=== PATIENT | female | born 1935 | race Hispanic/Latino ===

== ENCOUNTER 2017-10-03 10:57 | Inpatient (IN) | payer MEDICARE ==
[2017-10-03 10:58] VITALS: BMI 24.9
[2017-10-03 11:51] LABS: BASO # 0.1 K/uL (0.0-0.2); BASO % 1.1 % (0.0-2.0); EOS # 0.2 K/uL (0.0-0.7); EOS % 3.9 % (0.0-4.0); HEMATOCRIT 42.6 % (34.0-47.0); LYMPH # 1.2 K/uL (1.0-4.3); LYMPH % 20.6 % (20.0-40.0); MEAN CELL VOLUME 92.9 fl (81.0-99.0); MEAN CORPUSCULAR HEMOGLOBIN 30.1 pg (27.0-31.0); MEAN CORPUSCULAR HGB CONC 32.4 g/dL (33.0-37.0); MEAN PLATELET VOLUME 8.1 fl (7.2-11.7); MONO # 0.5 K/uL (0.0-0.8); NEUT # 3.7 K/uL (1.8-7.0); NEUT % 65.4 % (50.0-75.0); NRBC % 0.1 % (0.0-0.0); RED CELL DISTRIBUTION WIDTH 12.9 % (11.5-14.5); WHITE BLOOD COUNT 5.6 K/uL (4.8-10.8)
--- NOTE | 2017-10-03 11:52 | ED PDOC ---
HPI: Headache Time Seen by Provider: 10/03/17 11:00 Chief Complaint (Nursing): Headache Chief Complaint (Provider): Evaluation History Per: Patient History/Exam Limitations: no limitations Onset/Duration Of Symptoms: Days (x2 months) Current Symptoms Are (Timing): Still Present Additional Complaint(s): Kathie Anand is an 82 year old female with a past medical history of renal cancer and brain cancer, who presents to the ED for evaluation s/p craniotomy on 07/21/17. Patient states she had a lytic lesion on her left parietal skull and underwent a craniotomy performed by Dr. Martinez. States she now presents to the ED for a revision. Denies headache, dizziness, vision changes, and vomiting. Patient denies any complaints at this time. PMD: Kendall Hurt MD Past Medical History Reviewed: Historical Data, Nursing Documentation, Vital Signs Vital Signs: Last Vital Signs Temp 97.3 F L 10/03/17 11:03 Pulse 91 H 10/03/17 11:03 Resp 16 10/03/17 11:03 BP 128/64 10/03/17 11:03 Pulse Ox 95 10/03/17 11:03 - Medical History PMH: CAD, COPD, Hepatitis (B), HTN, Hypercholesterolemia, Seizures (LAST SEIZURE JUN 2015), TIA Denies: Depression Other PMH: Renal cancer, Brain cancer - Surgical History Surgical History: Coronary Stent ("many years ago"), Hernia Repair Denies: Pacemaker Other surgeries: Craniotomy 07/21/17 - Family History Family History: States: Unknown Family Hx - Social History Current smoker - smoking cessation education provided: No Ex-Smoker (has not smoked in the last 12 months): Yes (20 years) Alcohol: None Drugs: Denies - Home Medications Home Medications: Ambulatory Orders Medication Instructions Recorded Amlodipine Besylate [Norvasc] 5 mg PO DAILY 12/10/15 Atorvastatin [Lipitor] 20 mg PO HS 12/10/15 Lamotrigine [Lamictal] 100 mg PO BID 12/10/15 Losartan [Cozaar] 50 mg PO DAILY 12/10/15 Omeprazole 40 mg PO DAILY 12/10/15 Polyethylene Glycol 3350 [Miralax] 17 gm PO BID #14 packet 09/04/16 - Allergies Allergies/Adverse Reactions: Allergies Allergy/AdvReac Type Severity Reaction Status Date / Time Penicillins Allergy RASH Verified 10/03/17 11:17 tetanus and diphtheria Allergy RASH/DIZZY Verified 10/03/17 11:17 toxoids [tetanus & diphtheria toxoids] Review of Systems ROS Statement: Except As Marked, All Systems Reviewed And Found Negative Eyes: Negative for: Vision Change Gastrointestinal: Negative for: Vomiting Neurological: Negative for: Headache, Dizziness Physical Exam - Reviewed Nursing Documentation Reviewed: Yes Vital Signs Reviewed: Yes - Physical Exam Appears: Positive for: Well, Non-toxic, No Acute Distress Head Exam: Positive for: ATRAUMATIC, NORMAL INSPECTION, NORMOCEPHALIC Skin: Positive for: Normal Color, Warm, Dry. Negative for: Rash Cardiovascular/Chest: Positive for: Regular Rate, Rhythm. Negative for: Murmur Respiratory: Positive for: Normal Breath Sounds. Negative for: Respiratory Distress Gastrointestinal/Abdominal: Positive for: Normal Exam, Bowel Sounds, Soft. Negative for: Tenderness Back: Positive for: Normal Inspection. Negative for: L CVA Tenderness, R CVA Tenderness, Vertebral Tenderness Extremity: Positive for: Normal ROM. Negative for: Pedal Edema, Deformity Neurologic/Psych: Positive for: Alert, Oriented (x3). Negative for: Motor/ Sensory Deficits - Laboratory Results Result Diagrams: 10/04/17 05:45 10/04/17 05:45 - ECG O2 Sat by Pulse Oximetry: 95 (RA) Pulse Ox Interpretation: Normal Medical Decision Making Medical Decision Making: Time: 11:28 Initial Impression: history of brain cancer R/o metastatic lesion Plan: --Type and screen --CT head w/o contrast --EKG --CMP --Partial thromboplastin time --Prothrombin time --Portable Chest X-Ray --Urine C&S --Urinalysis --Dr. Martinez is aware of patient and requests she be admitted to the Hospitalist for further workup. --Reevaluation Time: 12:45 CT Head Findings: HEMORRHAGE: No intracranial hemorrhage. BRAIN: Prior left parietal craniectomy and cranioplasty are identified. No acute intracranial findings are identified including cytotoxic edema. Mild diffuse cerebral atrophy and chronic microangiopathy are identified which appear age- appropriate. There is no suspicious extra-axial fluid collection appreciated. Tiny granuloma is seen in the posterior left frontal vertex gyrus. VENTRICLES: Unremarkable. No hydrocephalus. PARANASAL SINUSES: Unremarkable as visualized. No significant inflammatory changes. MASTOID AIR CELLS: Unremarkable as visualized. No inflammatory changes. OTHER FINDINGS: None. IMPRESSION: Prior left parietal craniectomy and cranioplasty me without suspicious brain parenchymal findings above or below the tentorium or throughout the brainstem. In fact, no acute intracranial findings are appreciable. Mild age related neuro degenerative changes appear age-appropriate. Follow-up CT or MRI are available including with contrast as clinically warranted. --Contacted Hospitalist labs and urine reviewed Time: 1:04 --EKG shows sinus rhythm of 84 with left bundle branch block. Findings are unchanged compared to prior EKG. --Dr. Saab hospitalist accepted patient be admitted to her service. Scribe Attestation: Documented by Macario Beyer, acting as a scribe for Renaldo Dominguez MD. Provider Scribe Attestation: All medical record entries made by the Scribe were at my direction and personally dictated by me. I have reviewed the chart and agree that the record accurately reflects my personal performance of the history, physical exam, medical decision making, and the department course for this patient. I have also personally directed, reviewed, and agree with the discharge instructions and disposition. Disposition - Clinical Impression Clinical Impression: Brain malignancy - Patient ED Disposition Is Patient to be Admitted: Yes - Disposition Disposition Time: 12:00 Condition: STABLE
[2017-10-03 12:04] LABS: PARTIAL THROMBOPLASTIN TIME 30.3 Seconds (25.6-37.1)
[2017-10-03 12:05] LABS: RBC URINE 2 /hpf (0-3); URINE BILIRUBIN NEGATIVE (NEGATIVE); URINE BLOOD NEGATIVE (NEGATIVE); URINE COLOR YELLOW (YELLOW); URINE GLUCOSE (UA) NEG (Normal); URINE KETONE NEGATIVE (NEGATIVE); URINE LEUKOCYTE ESTERASE NEG Leu/uL (Negative); URINE PROTEIN NEGATIVE (NEGATIVE); URINE UROBILINOGEN 0.2-1.0 mg/dL (0.2-1.0); WBC URINE < 1 /hpf (0-5)
[2017-10-03 12:16] LABS: ALB/GLOB RATIO 1.1 (1.0-2.1); ALKALINE PHOSPHATASE 84 U/L (38-126); ALT/SGPT 30 U/L (9-52); AST/SGOT 24 U/L (14-36); BILIRUBIN,TOTAL 0.4 mg/dl (0.2-1.3); BLOOD UREA NITROGEN 15 mg/dl (7-17); CALCIUM 10.1 mg/dL (8.4-10.2); CARBON DIOXIDE 25 mmol/L (22-30); CHLORIDE 107 mmol/L (98-107); GFR AFRICAN-AMERICAN > 60; GLUCOSE,RANDOM 108 mg/dL (65-105); POTASSIUM 4.5 MMOL/L (3.6-5.0); SODIUM 142 mmol/l (132-148); TOTAL PROTEIN 7.5 G/DL (6.3-8.2)
--- NOTE | 2017-10-03 12:46 | CT ---
PROCEDURE: CT HEAD WITHOUT CONTRAST. HISTORY: PRIOR BRAIN SURGERY COMPARISON: None available. TECHNIQUE: Axial computed tomography images were obtained through the head/brain without intravenous contrast. Radiation dose: Total exam DLP = 754.36 mGy-cm. This CT exam was performed using one or more of the following dose reduction techniques: Automated exposure control, adjustment of the mA and/or kV according to patient size, and/or use of iterative reconstruction technique. FINDINGS: HEMORRHAGE: No intracranial hemorrhage. BRAIN: Prior left parietal craniectomy and cranioplasty are identified. No acute intracranial findings are identified including cytotoxic edema. Mild diffuse cerebral atrophy and chronic microangiopathy are identified which appear age-appropriate. There is no suspicious extra-axial fluid collection appreciated. Tiny granuloma is seen in the posterior left frontal vertex gyrus. VENTRICLES: Unremarkable. No hydrocephalus. PARANASAL SINUSES: Unremarkable as visualized. No significant inflammatory changes. MASTOID AIR CELLS: Unremarkable as visualized. No inflammatory changes. OTHER FINDINGS: None. IMPRESSION: Prior left parietal craniectomy and cranioplasty me without suspicious brain parenchymal findings above or below the tentorium or throughout the brainstem. In fact, no acute intracranial findings are appreciable. Mild age related neuro degenerative changes appear age-appropriate. Follow-up CT or MRI are available including with contrast as clinically warranted.
--- NOTE | 2017-10-03 14:25 | CP.PCM.HP ---
History of Present Illness - History of Present Illness History of Present Illness: 82 year old female with PMHx of renal cancer, brain metastasis, CAD, COPD, Hepatitis (B), HTN, Hypercholesterolemia, Seizures (LAST SEIZURE JUN 2015), TIA who presents to ED 2 months s/p craniotomy (DOS 07/21/17) for cranioplasty and mesh removal with Dr. Martinez tomorrow. Patient states that the area of her head where the cranioplasty was performed is tender to touch. She denies any other complaints at this time. Denies use of any pain medication. Denies N/V/F/C /CP/SOB/posterior calf pain/constipation/urinary retention. Meds: see below All: Penicillins, tetanus and diphtheria toxins PSH: Craniotomy, Coronary stent, hernia repair, removal of renal malignancy FH: Unremarkable SH: Previous smoker (quit 23 years ago), occasional wine consumption, denies illicit drug use Present on Admission - Present on Admission Any Indicators Present on Admission: No Review of Systems - Review of Systems Review of Systems: ROS as per HPI. All other systems reviewed and found to be negative Past Patient History - Infectious Disease Hx of Infectious Diseases: None - Tetanus Immunizations Tetanus Immunization: Unknown - Past Social History Alcohol: None Drugs: Denies - CARDIAC Hx Hypercholesterolemia: Yes Hx Hypertension: Yes Hx Pacemaker: No - PULMONARY Hx Chronic Obstructive Pulmonary Disease (COPD): Yes - NEUROLOGICAL Hx Seizures: Yes (LAST SEIZURE JUN 2015) Hx Transient Ischemic Attacks (TIA): Yes - HEENT Hx HEENT Problems: Yes Hx Cataracts: Yes Other/Comment: HAS H/O RETINAL DETACHEMENT LEFT EYE - RENAL Hx Chronic Kidney Disease: Yes Hx Renal (Kidney) Cancer: Yes - HEMATOLOGICAL/ONCOLOGICAL Hx Blood Disorders: Yes Hx Blood Transfusions: No Hx Blood Transfusion Reaction: No Hx Cancer: Yes (renal and brain cancer) - MUSCULOSKELETAL/RHEUMATOLOGICAL Hx Musculoskeletal Disorders: Yes Hx Falls: Yes - GASTROINTESTINAL Hx Gastrointestinal Disorders: Yes (SBO) - GENITOURINARY/GYNECOLOGICAL Hx Genitourinary Disorders: No Hx Reproductive Disorders: No - PSYCHIATRIC Hx Depression: No - SURGICAL HISTORY Hx Coronary Stent: Yes ("many years ago") - ANESTHESIA Hx Anesthesia Reactions: No Hx Malignant Hyperthermia: No Meds Allergies/Adverse Reactions: Allergies Allergy/AdvReac Type Severity Reaction Status Date / Time Penicillins Allergy RASH Verified 10/03/17 11:17 tetanus and diphtheria Allergy RASH/DIZZY Verified 10/03/17 11:17 toxoids [tetanus & diphtheria toxoids] Physical Exam - Constitutional Appears: Well, Non-toxic, No Acute Distress - Head Exam Additional comments: POP to posterior head consistent with craniotomy performed 07/21/17 - Eye Exam Eye Exam: EOMI, PERRL Pupil Exam: PERRL - ENT Exam ENT Exam: Mucous Membranes Moist - Neck Exam Neck exam: Negative for: Tenderness - Respiratory Exam Respiratory Exam: Clear to Auscultation Bilateral, NORMAL BREATHING PATTERN - Cardiovascular Exam Cardiovascular Exam: REGULAR RHYTHM - GI/Abdominal Exam GI & Abdominal Exam: Soft. absent: Distended, Firm, Guarding - Rectal Exam Rectal Exam: Deferred - Extremities Exam Extremities exam: Positive for: normal inspection - Neurological Exam Neurological exam: Alert, Oriented x3 - Psychiatric Exam Psychiatric exam: Normal Affect, Normal Mood - Skin Skin Exam: Intact, Normal Color, Warm Results - Vital Signs Recent Vital Signs: Last Vital Signs Temp 97.3 F L 10/03/17 11:03 Pulse 91 H 10/03/17 11:03 Resp 16 10/03/17 11:03 BP 128/64 10/03/17 11:03 Pulse Ox 95 10/03/17 13:14 - Labs Result Diagrams: 10/03/17 11:45 10/03/17 11:45 Labs: Laboratory Results - last 24 hr 10/03/17 10/03/17 10/03/17 11:45 11:45 11:45 WBC 5.6 RBC 4.59 Hgb 13.8 Hct 42.6 MCV 92.9 MCH 30.1 MCHC 32.4 L RDW 12.9 Plt Count 290 MPV 8.1 Neut % (Auto) 65.4 Lymph % (Auto) 20.6 [place] % (Auto) 9.0 Eos % (Auto) 3.9 Baso % (Auto) 1.1 Neut # 3.7 Lymph # 1.2 Raw[place]ins # 0.5 Eos # 0.2 Baso # 0.1 PT 11.9 INR 1.1 APTT 30.3 Sodium 142 Potassium 4.5 Chloride 107 Carbon Dioxide 25 Anion Gap 15 BUN 15 Creatinine 0.9 Est GFR ( Amer) > 60 Est GFR (Non-Af Amer) 60 Random Glucose 108 H Calcium 10.1 Total Bilirubin 0.4 AST 24 ALT 30 Alkaline Phosphatase 84 Total Protein 7.5 Albumin 4.0 Globulin 3.5 Albumin/Globulin Ratio 1.1 Urine Color Urine Clarity Urine pH Ur Specific Shannock Urine Protein Urine Glucose (UA) Urine Ketones Urine Blood Urine Nitrate Urine Bilirubin Urine Urobilinogen Ur Leukocyte Esterase Urine RBC (Auto) Urine Microscopic WBC Blood Type Antibody Screen BBK History Checked 10/03/17 10/03/17 11:45 11:56 WBC RBC Hgb Hct MCV MCH MCHC RDW Plt Count MPV Neut % (Auto) Lymph % (Auto) [place] % (Auto) Eos % (Auto) Baso % (Auto) Neut # Lymph # [place] # Eos # Baso # PT INR APTT Sodium Potassium Chloride Carbon Dioxide Anion Gap BUN Creatinine Est GFR ( Amer) Est GFR (Non-Af Amer) Random Glucose Calcium Total Bilirubin AST ALT Alkaline Phosphatase Total Protein Albumin Globulin Albumin/Globulin Ratio Urine Color Yellow Urine Clarity Clear Urine pH 6.0 Ur Specific [place] 1.009 Urine Protein Negative Urine Glucose (UA) Neg Urine Ketones Negative Urine Blood Negative Urine Nitrate Negative Urine Bilirubin Negative Urine Urobilinogen 0.2-1.0 Ur Leukocyte Esterase Neg Urine RBC (Auto) 2 Urine Microscopic WBC < 1 Blood Type O NEGATIVE Antibody Screen Negative BBK History Checked No verified bt Assessment & Plan - Assessment and Plan (Free Text) Assessment: 82 year old female with PMHx of renal cancer, brain metastasis, CAD, COPD, Hepatitis (B), HTN, Hypercholesterolemia, Seizures (LAST SEIZURE JUN 2015), TIA and mild COPD who presents to ED 2 months s/p craniotomy (DOS 07/21/17) for cranioplasty and mesh removal with Dr. Martinez tomorrow 10/04/17 Plan: 1. S/p craniotomy - Admit to med/surg for cranioplasty and mesh removal with Dr. Martinez 10/04/17 - Pt to be NPO except meds after midnight tonight - Head CT: Prior left parietal craniotomy and cranioplasty w/o suspicious brain parenchymal findings above or below the tentorium or throughout the brainstem. No acute intracranial findings are appreciable. Mild age related neuro related changes appear age appropriate - F/u CXR results - EKG: LBBB (chronic in nature- previously seen on past EKGs), asymptomatic - Stress test February 2017 negative - Patient hemodynamically stable and medically cleared for surgery 2. Renal cancer with mets, lytic lesions - Pt to f/u with oncologist as outpatient 3. COPD - Stable and asymptomatic - Sat 100% on room air 4. HTN - Stable - BP 125/80 - Continue Losartan 50 mg PO daily 5. Hypercholesterolemia - Continue Lipitor 20 mg PO HS 6. Seizures - Continue Lamotrigine 100 mg PO BID - Date & Time Date: 10/03/17 Time: 14:52
--- NOTE | 2017-10-03 14:36 | RAD ---
HISTORY: PREOP COMPARISON: No prior. FINDINGS: LUNGS: There is confluent airspace disease in the right lower lobe. The left lung is clear. Macro COPD PLEURA: There is blunting of the right costophrenic angle. No significant left pleural effusion identified, no pneumothorax apparent. CARDIOVASCULAR: Normal. OSSEOUS STRUCTURES: No significant abnormalities. VISUALIZED UPPER ABDOMEN: Normal. OTHER FINDINGS: None. IMPRESSION: 1. Confluent airspace disease in the right lower lobe which may represent atelectasis however pneumonia cannot be excluded. Suspect small right pleural effusion versus pleural thickening. Clinical correlation and follow-up is advised. 2. COPD.
[2017-10-03] MEDS: POLYETHYLENE GLYCOL 3350 17 GM/Dose PACKET PO SCH (17:57)
[2017-10-03] MEDS ORDERED: Anusol Suppository PR ONE (19:52)
[2017-10-04 06:24] LABS: BASO # 0.1 K/uL (0.0-0.2); BASO % 1.2 % (0.0-2.0); EOS # 0.4 K/uL (0.0-0.7); EOS % 7.5 % (0.0-4.0); HEMATOCRIT 39.9 % (34.0-47.0); LYMPH # 1.7 K/uL (1.0-4.3); LYMPH % 33.4 % (20.0-40.0); MEAN CELL VOLUME 93.2 fl (81.0-99.0); MEAN CORPUSCULAR HEMOGLOBIN 30.1 pg (27.0-31.0); MEAN CORPUSCULAR HGB CONC 32.3 g/dL (33.0-37.0); MONO # 0.4 K/uL (0.0-0.8); MONO % 8.8 % (0.0-10.0); NEUT # 2.4 K/uL (1.8-7.0); NEUT % 49.1 % (50.0-75.0); NRBC % 0.1 % (0.0-0.0); RED CELL DISTRIBUTION WIDTH 12.9 % (11.5-14.5); WHITE BLOOD COUNT 4.9 K/uL (4.8-10.8)
[2017-10-04 06:41] LABS: BLOOD UREA NITROGEN 13 mg/dl (7-17); CALCIUM 9.8 mg/dL (8.4-10.2); CARBON DIOXIDE 29 mmol/L (22-30); CHLORIDE 105 mmol/L (98-107); GFR AFRICAN-AMERICAN > 60; GLUCOSE,RANDOM 99 mg/dL (65-105); POTASSIUM 4.4 MMOL/L (3.6-5.0); SODIUM 142 mmol/l (132-148)
[2017-10-04] MEDS ORDERED: Rocuronium 10 mg/ml (5 ml) ONE (07:12)
[2017-10-04] MEDS ORDERED: Lidocaine 2% MPF (5 ml) Inj ONE (07:12)
[2017-10-04] MEDS ORDERED: Propofol 10 mg/ml Inj (20 ML) ONE (07:12)
[2017-10-04] MEDS ORDERED: Lidocaine 4% (Laryng-O-Jet) Kit MM ONE (07:12)
[2017-10-04] MEDS ORDERED: Succinylcholine 200 mg/10 ml Inj IV ONE (07:12)
[2017-10-04] MEDS ORDERED: Liquid Adhesive TOP ONE (07:26)
[2017-10-04] MEDS ORDERED: Absorbable Gelatin Sponge Size 100 ONE (07:27)
[2017-10-04] MEDS ORDERED: Lidocaine 1% Inj (20ml) ONE (07:27)
[2017-10-04] MEDS ORDERED: APROTININ/FIBRINOGEN(TISSEEL) ONE (07:27)
[2017-10-04] MEDS ORDERED: Etomidate 20 mg/10ml Inj IV ONE (07:31)
[2017-10-04] MEDS ORDERED: Phenylephrine 10 mg/ml Inj ONE (07:32)
[2017-10-04] MEDS ORDERED: Lactated Ringer's 1,000 ML IV ONE (07:45)
[2017-10-04] MEDS: Pantoprazole 40 mg EC Tab PO SCH (08:00)
[2017-10-04] MEDS: POLYETHYLENE GLYCOL 3350 17 GM/Dose PACKET PO SCH ×2 (08:00→17:09)
[2017-10-04] MEDS ORDERED: Lidocaine 1% Inj (20ml) IJ ONE (08:08)
[2017-10-04] MEDS ORDERED: Bacitracin OINT 15GM TOP ONE (08:20)
[2017-10-04] MEDS ORDERED: HYDROmorphone 0.5 mg/0.5 ml ISec IVP PRN (08:43)
[2017-10-04] MEDS ORDERED: Thrombin Topical 5,000 Int Units Spray Kit ONE (08:49)
--- NOTE | 2017-10-04 11:23 | CARD ---
APPROVED REPORT EKG Measurement Heart [id number] <Conclusion> Sinus rhythm with 1st degree AV block Left axis deviation Left bundle branch block Abnormal ECG
--- NOTE | 2017-10-04 12:39 | CP.PCM.PN ---
Subjective - Date & Time of Evaluation Date of Evaluation: 10/04/17 Time of Evaluation: 12:00 - Subjective Subjective: Pt seen post op in her room Pt is awake , alert, oriented x 3 Head covered with dressing pain controlled denies CP no SOB no abd pain Objective - Vital Signs/Intake and Output Vital Signs (last 24 hours): Temp Pulse Resp BP Pulse Ox 98.0 F 79 20 135/61 99 10/04/17 10:25 10/04/17 10:25 10/04/17 10:25 10/04/17 10:25 10/04/17 10:25 Intake and Output: 10/04/17 10/04/17 06:59 18:59 Intake Total 375 Output Total 25 Balance 350 - Medications Medications: Current Medications Acetaminophen (Tylenol 325mg Tab) 650 mg PO Q6 PRN PRN Reason: Pain, Mild (1-3) Acetaminophen (Tylenol 325mg Tab) 650 mg PO Q6 PRN PRN Reason: Fever >100.4 F Amlodipine Besylate (Norvasc) 5 mg PO DAILY [facility] Last Admin: 10/04/17 08:00 Dose: Not Given Atorvastatin Calcium (Lipitor) 20 mg PO HS [facility] Last Admin: 10/03/17 22:19 Dose: 20 mg Lactated Ringer's (Lactated Ringer's) 1,000 mls @ 50 mls/hr IV .Q20H [place] Clindamycin Phosphate 600 mg/ (Sodium Chloride) 54 mls @ 54 mls/hr IVPB Q8 [place] PRN Reason: Protocol Stop: 10/04/17 17:59 Lamotrigine (Lamictal) 150 mg PO BID [facility] Last Admin: 10/04/17 08:00 Dose: Not Given Losartan Potassium (Cozaar) 50 mg PO DAILY [facility] Last Admin: 10/04/17 08:00 Dose: Not Given Ondansetron HCl (Zofran Inj) 4 mg IVP Q6 PRN PRN Reason: Nausea/Vomiting Pantoprazole Sodium (Protonix Ec Tab) 40 mg PO DAILY [facility] Last Admin: 10/04/17 08:00 Dose: Not Given Polyethylene Glycol (Miralax) 17 gm PO BID [facility] Last Admin: 10/04/17 08:00 Dose: Not Given - Labs Labs: 10/04/17 05:45 10/04/17 05:45 PT 11.9 Seconds (9.8-13.1) 10/03/17 11:45 INR 1.1 (0.9-1.2) 10/03/17 11:45 APTT 30.3 Seconds (25.6-37.1) 10/03/17 11:45 - Constitutional Appears: No Acute Distress - Head Exam Additional comments: with post op Craniotomy wound with dressing - Eye Exam Eye Exam: EOMI, Normal appearance, PERRL Pupil Exam: NORMAL ACCOMODATION - ENT Exam ENT Exam: Mucous Membranes Moist, Normal External Ear Exam - Neck Exam Neck Exam: Full ROM. absent: Meningismus - Respiratory Exam Respiratory Exam: NORMAL BREATHING PATTERN. absent: Rales, Wheezes, Respiratory Distress - Cardiovascular Exam Cardiovascular Exam: REGULAR RHYTHM, +S1, +S2 - GI/Abdominal Exam GI & Abdominal Exam: Soft, Normal Bowel Sounds. absent: Tenderness - Extremities Exam Extremities Exam: Full ROM, Normal Capillary Refill. absent: Calf Tenderness, Pedal Edema - Back Exam Back Exam: Full ROM. absent: CVA tenderness (L), CVA tenderness (R) - Neurological Exam Neurological Exam: Alert, Awake, CN II-XII Intact, Oriented x3 Neuro motor strength exam: Left Upper Extremity: 4, Right Upper Extremity: 4, Left Lower Extremity: 4, Right Lower Extremity: 4 - Psychiatric Exam Psychiatric exam: Normal Affect, Normal Mood - Skin Skin Exam: Dry, Normal Color, Warm Assessment and Plan - Assessment and Plan (Free Text) Assessment: 82 year old female with PMHx of Renal cancer with brain metastasis, CAD, COPD, Hepatitis (B), HTN, Hypercholesterolemia, Seizures (LAST SEIZURE JUN 2015), TIA and mild COPD presented to ED 2 months s/p craniotomy (DOS 07/21/17) for Cranioplasty and mesh removal with Dr. Martinez tomorrow 10/04/17 1. Brain Tumor S/p craniotomy s/p Re-exploration and removal of old Cranioplasty done today 10/04 - Head CT: Prior left parietal craniotomy and cranioplasty w/o suspicious brain parenchymal findings above or below the tentorium or throughout the brainstem. No acute intracranial findings are appreciable. Mild age related neuro related changes appear age appropriate - resume diet -Incentive spiromnetry -SCD - Pain mgt -PT ,OT consult -Clindamycin IV x 3 dose for Surg prophylaxis 2. Renal cancer with mets, lytic lesions - Pt to f/u with oncologist as outpatient 3. COPD - Stable and asymptomatic - Sat 100% on room air 4. HTN - Stable - Continue Losartan 50 mg PO daily 5. Hypercholesterolemia - Continue Lipitor 20 mg PO HS 6. Seizures - Continue Lamotrigine 100 mg PO BID DVT proph - SCD - no anticoag sec to recent brain surgery
[2017-10-04 15:35] VITALS: RESP 18
--- NOTE | 2017-10-04 16:01 | OP ---
PROCEDURE DATE: 10/04/2017 PREOPERATIVE DIAGNOSIS: Cranioplasty, status post craniectomy from brain tumor. POSTOPERATIVE DIAGNOSIS: Cranioplasty, status post craniectomy from brain tumor. PROCEDURE: Re-exploration of craniotomy, left occipital and removal of the old cranioplasty. SURGEON: Neil Martinez MD DESCRIPTION OF PROCEDURE: The patient was brought to the operating room, anesthetized with general endotracheal anesthesia, placed in a supine position. Head was placed in a doughnut, slightly turned to the right side. Left occipital area was thoroughly prepped and draped in standard sterile manner after marking of the skin incision for a reexploration of occipital craniotomy. After prepping and draping the area and the old skin incision scar has been opened, bleeding skin had been controlled with Bovie maintenance pipefitter. After using a Bovie maintenance pipefitter, subcutaneous tissue has been cut. There was a wide mesh that was found to be protruding through the internal part of the skin that was producing the pain. This has been gently and screws have been removed and whole cranioplasty has been removed. It was thought, because the patient had a preoperative pain, that is because of this cranioplasty that was protruding over subcutaneous tissue, giving her pain. After that hemostasis was best achieved. Galea and subcutaneous tissue were closed with 3 Vicryl, skin has been mended with 2-0 silk. The patient tolerated the procedure, and after procedure, mobilized to the recovery room in stabilized condition. Neil Martinez MD
[2017-10-04] MEDS: Clindamycin 600mg/50ml NS 600 MG/50 ML BAG IVPB SCH (17:06)
[2017-10-04] MEDS: Lactated Ringer's 1,000 ML IV SCH (17:19)
[2017-10-05 00:35] VITALS: PULSE 75; O2SAT 93
[2017-10-05] MEDS: Clindamycin 600mg/50ml NS 600 MG/50 ML BAG IVPB SCH (00:58)
[2017-10-05] MEDS: Lactated Ringer's 1,000 ML IV SCH (01:01)
[2017-10-05 08:01] VITALS: BP 119/68; TEMP 98
--- NOTE | 2017-10-05 10:00 | CP.PCM.DIS ---
Provider - Provider Date of Admission: 10/03/17 12:58 Attending physician: Remi Saab MD Primary care physician: Dr. Matthews Consults: neurosurgery consult Time Spent in preparation of Discharge (in minutes): 15 Hospital Course - Lab Results Lab Results: Micro Results 10/03/17 11:56 Urine Urine Culture - Final No Growth (<1,000 CFU/ML) Most Recent Lab Values WBC 4.9 K/uL (4.8-10.8) 10/04/17 05:45 RBC 4.29 Mil/uL (3.80-5.20) 10/04/17 05:45 Hgb 12.9 g/dL (12.0-16.0) 10/04/17 05:45 Hct 39.9 % (34.0-47.0) 10/04/17 05:45 MCV 93.2 fl (81.0-99.0) 10/04/17 05:45 MCH 30.1 pg (27.0-31.0) 10/04/17 05:45 MCHC 32.3 g/dL (33.0-37.0) L 10/04/17 05:45 RDW 12.9 % (11.5-14.5) 10/04/17 05:45 Plt Count 286 K/uL (130-400) 10/04/17 05:45 MPV 8.0 fl (7.2-11.7) 10/04/17 05:45 Neut % (Auto) 49.1 % (50.0-75.0) L 10/04/17 05:45 Lymph % (Auto) 33.4 % (20.0-40.0) 10/04/17 05:45 [place] % (Auto) 8.8 % (0.0-10.0) 10/04/17 05:45 Eos % (Auto) 7.5 % (0.0-4.0) H 10/04/17 05:45 Baso % (Auto) 1.2 % (0.0-2.0) 10/04/17 05:45 Neut # 2.4 K/uL (1.8-7.0) 10/04/17 05:45 Lymph # 1.7 K/uL (1.0-4.3) 10/04/17 05:45 [place] # 0.4 K/uL (0.0-0.8) 10/04/17 05:45 Eos # 0.4 K/uL (0.0-0.7) 10/04/17 05:45 Baso # 0.1 K/uL (0.0-0.2) 10/04/17 05:45 PT 11.9 Seconds (9.8-13.1) 10/03/17 11:45 INR 1.1 (0.9-1.2) 10/03/17 11:45 APTT 30.3 Seconds (25.6-37.1) 10/03/17 11:45 Sodium 142 mmol/l (132-148) 10/04/17 05:45 Potassium 4.4 MMOL/L (3.6-5.0) 10/04/17 05:45 Chloride 105 mmol/L (98-107) 10/04/17 05:45 Carbon Dioxide 29 mmol/L (22-30) 10/04/17 05:45 Anion Gap 12 (10-20) 10/04/17 05:45 BUN 13 mg/dl (7-17) 10/04/17 05:45 Creatinine 1.0 mg/dl (0.7-1.2) 10/04/17 05:45 Est GFR ( Amer) > 60 10/04/17 05:45 Est GFR (Non-Af Amer) 53 10/04/17 05:45 Random Glucose 99 mg/dL (65-105) 10/04/17 05:45 Calcium 9.8 mg/dL (8.4-10.2) 10/04/17 05:45 Total Bilirubin 0.4 mg/dl (0.2-1.3) 10/03/17 11:45 AST 24 U/L (14-36) 10/03/17 11:45 ALT 30 U/L (9-52) 10/03/17 11:45 Alkaline Phosphatase 84 U/L (38-126) 10/03/17 11:45 Total Protein 7.5 G/DL (6.3-8.2) 10/03/17 11:45 Albumin 4.0 g/dL (3.5-5.0) 10/03/17 11:45 Globulin 3.5 gm/dL (2.2-3.9) 10/03/17 11:45 Albumin/Globulin Ratio 1.1 (1.0-2.1) 10/03/17 11:45 Urine Color Yellow (YELLOW) 10/03/17 11:56 Urine Clarity Clear (Clear) 10/03/17 11:56 Urine pH 6.0 (5.0-8.0) 10/03/17 11:56 Ur Specific [place] 1.009 (1.003-1.030) 10/03/17 11:56 Urine Protein Negative mg/dL (NEGATIVE) 10/03/17 11:56 Urine Glucose (UA) Neg mg/dL (Normal) 10/03/17 11:56 Urine Ketones Negative mg/dL (NEGATIVE) 10/03/17 11:56 Urine Blood Negative (NEGATIVE) 10/03/17 11:56 Urine Nitrate Negative (NEGATIVE) 10/03/17 11:56 Urine Bilirubin Negative (NEGATIVE) 10/03/17 11:56 Urine Urobilinogen 0.2-1.0 mg/dL (0.2-1.0) 10/03/17 11:56 Ur Leukocyte Esterase Neg [place]/uL (Negative) 10/03/17 11:56 Urine RBC (Auto) 2 /hpf (0-3) 10/03/17 11:56 Urine Microscopic WBC < 1 /hpf (0-5) 10/03/17 11:56 Blood Type O NEGATIVE 10/03/17 11:45 Blood Type Confirm O NEGATIVE 10/03/17 03:45 Antibody Screen Negative 10/03/17 11:45 Crossmatch See Detail 10/03/17 11:45 BBK History Checked No verified bt 10/03/17 11:45 - Hospital Course Hospital Course: 82 year old female with PMHx of Renal cancer with brain metastasis, CAD, COPD, Hepatitis (B), HTN, Hypercholesterolemia, Seizures (LAST SEIZURE JUN 2015), TIA and mild COPD presented to ED 2 months s/p craniotomy (DOS 07/21/17) for Cranioplasty and mesh removal with Dr. Martinez . She underwent successful mesh removal on 10/04/17 Post op recovery was uneventful. Hemodynamically stable,afebrile. Will discharge patient home with family 1. Brain Tumor S/p craniotomy s/p Re-exploration and removal of old Cranioplasty done today 10/[address]: Prior left parietal craniotomy and cranioplasty w/o suspicious brain parenchymal findings above or below the tentorium or throughout the brainstem. No acute intracranial findings are appreciable. Mild age related neuro related changes appear age appropriate Clindamycin IV x 3 dose for Surg prophylaxis post op doing well will d/c home 2. Renal cancer with mets, lytic lesions Pt to f/u with oncologist as outpatient 3. COPD Stable and asymptomatic Sat 100% on room air 4. HTN Stable Continue Losartan 50 mg PO daily 5. Hypercholesterolemia Continue Lipitor 20 mg PO HS 6. Seizures Continue Lamotrigine 100 mg PO BID 7.DVT proph SCD no anticoag sec to recent brain surgery Discharge Exam - Head Exam Head Exam: NORMAL INSPECTION, NORMOCEPHALIC Additional comments: left occipital dressing in place - Eye Exam Eye Exam: EOMI, Normal appearance, PERRL Pupil Exam: NORMAL ACCOMODATION - ENT Exam ENT Exam: Mucous Membranes Moist, Normal Exam - Neck Exam Neck exam: Full Rom, Normal Inspection - Respiratory Exam Respiratory Exam: Clear to PA & Lateral, NORMAL BREATHING PATTERN. absent: Rales, Rhonchi, Wheezes - Cardiovascular Exam Cardiovascular Exam: REGULAR RHYTHM, RRR, +S1, +S2. absent: JVD - GI/Abdominal Exam GI & Abdominal Exam: Normal Bowel Sounds, Soft. absent: Distended, Guarding, Rebound, Tenderness - Rectal Exam Rectal Exam: Deferred - Extremities Exam Extremities exam: normal capillary refill, normal inspection, pedal pulses present - Back Exam Back exam: NORMAL INSPECTION - Neurological Exam Neurological exam: Alert, CN II-XII Intact, Oriented x3, Reflexes Normal - Psychiatric Exam Psychiatric exam: Normal Affect, Normal Mood - Skin Skin Exam: Dry, Warm Discharge Plan - Follow Up Plan Condition: STABLE Disposition: HOME/ ROUTINE Patient education suggested?: Yes Referrals: Neil Martinez MD [Staff Provider] - Kendall Hurt MD [Family Provider] -
[2017-10-05] MEDS: Pantoprazole 40 mg EC Tab PO SCH (10:12)
[2017-10-05] MEDS: POLYETHYLENE GLYCOL 3350 17 GM/Dose PACKET PO SCH (10:12)
== END 2017-10-05 12:30 | disposition home or self-care (01) | DRG 908 ==
LOC: H.ER 10:57 → H.ERHOLD 12:58 → H.MEDSURG1 15:23 → H.TEL 10-04 10:34
PROVIDERS: ADMIT Hospitalist; ATTEND Hospitalist
PROC: 00C30ZZ Extirpation of Matter from Intracranial Epidural Space, Open Approach (ICD-10-PCS; principal; 2017-10-04 07:45)
DX: T85.848A Pain due to other internal prosthetic devices, implants and grafts, initial encounter (principal); C79.31 Secondary malignant neoplasm of brain; C64.9 Malignant neoplasm of unspecified kidney, except renal pelvis; R56.9 Unspecified convulsions; Z98.890 Other specified postprocedural states; I25.10 Atherosclerotic heart disease of native coronary artery without angina pectoris; I10 Essential (primary) hypertension; E78.00 Pure hypercholesterolemia, unspecified; J44.9 Chronic obstructive pulmonary disease, unspecified; I44.7 Left bundle-branch block, unspecified; Y83.8 Other surgical procedures as the cause of abnormal reaction of the patient, or of later complication, without mention of misadventure at the time of the procedure; Z86.19 Personal history of other infectious and parasitic diseases; Z86.73 Personal history of transient ischemic attack (TIA), and cerebral infarction without residual deficits; Z95.5 Presence of coronary angioplasty implant and graft; Z87.891 Personal history of nicotine dependence; Z88.0 Allergy status to penicillin; Z88.7 Allergy status to serum and vaccine